=== PATIENT | female | born 1995 ===

== ENCOUNTER 2020-09-02 05:40 | Inpatient (IN) | payer MEDICAID ==
[2020-09-02] MEDS ORDERED: Sodium Chloride 0.9% 10 ML Syringe FLUSH PRN (07:02)
[2020-09-02] MEDS ORDERED: Methylergonovine 0.2 MG/1 ML Amp IM PRN (07:02)
[2020-09-02] MEDS ORDERED: Sodium Chloride 0.9% 10 ML SDV IV PRN (07:02)
[2020-09-02] MEDS ORDERED: Water For Irrigation,Sterile 1,000 ML Container IRR PRN (07:02)
[2020-09-02] MEDS ORDERED: Misoprostol 200 MCG Tab PO PRN (07:02)
[2020-09-02] MEDS ORDERED: Sodium Chloride 0.9% 2.5 ML Syringe FLUSH PRN (07:02)
[2020-09-02] MEDS ORDERED: Tranexamic Acid 1,000 MG in Sodium Chloride 0.9% 100 ML IV PRN (07:02)
[2020-09-02] MEDS ORDERED: Carboprost Tromethamine 250 MCG/1 ML Amp IM PRN (07:02)
[2020-09-02] MEDS ORDERED: Nalbuphine 10 MG/1 ML Vial IVPUSH PRN (07:02)
[2020-09-02] MEDS ORDERED: Lidocaine 1% 50 ML MDV INJECT PRN (07:02)
[2020-09-02] MEDS ORDERED: Oxytocin/0.9 % Sodium Chloride 30 UNIT/500 ML BAG IV SCH ×2 (07:15→10:15)
[2020-09-02] MEDS: Lactated Ringers 1,000 ML IV SCH ×2 (07:30→14:30)
[2020-09-02] MEDS ORDERED: Terbutaline 1 MG/ML SDV SUBCUT PRN (10:15)
[2020-09-02] MEDS ORDERED: Acetaminophen 500 MG Tab PO ONE (10:48)
[2020-09-02] MEDS: Butorphanol 1 MG/ML SDV IVPUSH PRN ×2 (14:27→16:02)
[2020-09-02] MEDS ORDERED: Morphine 10 MG/ML Syringe ONE (17:26)
[2020-09-02] MEDS ORDERED: Morphine 10 MG/ML Syringe IVPUSH ONE (17:37)
[2020-09-02] MEDS ORDERED: Acetaminophen 500 MG Tab PO PRN ×2 (18:20)
[2020-09-02] MEDS ORDERED: Ibuprofen 400 MG Tab PO PRN (18:20)
[2020-09-02] MEDS ORDERED: Bisacodyl 10 MG Supp RECTAL PRN (18:20)
[2020-09-02] MEDS ORDERED: Witch Hazel Medicated Pads 40/Jar TOP PRN (18:20)
[2020-09-02] MEDS ORDERED: Lanolin 100% Cream 7 GM Tube TOP PRN (18:20)
[2020-09-02] MEDS ORDERED: oxyCODONE 5 MG Tab PO PRN (18:20)
[2020-09-02] MEDS ORDERED: Benzocaine/Menthol 20%-0.5% Spray 78 GM Cannister TOP PRN (18:20)
[2020-09-02] MEDS: Docusate Sodium 100 MG Cap PO PRN (20:26)
[2020-09-02] MEDS: Ibuprofen 800 MG Tab PO PRN (20:27)
[2020-09-03] MEDS: Ibuprofen 800 MG Tab PO PRN ×3 (02:23→16:33)
--- NOTE | 2020-09-03 08:41 | OR ---
SURGEON: JOEY THORNE DATE OF PROCEDURE: 09/02/2020 PREOPERATIVE DIAGNOSIS: A 25-year-old G2, P0-0-1-0 at 38 weeks and 1 day, admitted with SROM. POSTOPERATIVE DIAGNOSIS: A 25-year-old G2, P0-0-1-0 at 38 weeks and 1 day, admitted with SROM. PROCEDURE: Normal spontaneous vaginal delivery and repair of second-degree laceration. FINDING: A live male delivered at 5:13 p.m. score of 8 and 9, weight is 3320g ESTIMATED BLOOD LOSS: 300. IV FLUIDS: Pitocin running. ANESTHESIA: 1% lidocaine local BRIEF HISTORY ABOUT THE PATIENT: She is a 25-year-old G2, P0-0-1-0 at 38 weeks and 1 day, who came in complaining of leakage of fluid. She was confirmed to be ruptured. She was about 3 cm when she came in and she was observed for a while. She did not make change, so Pitocin was started. When the Pitocin was started, she was noted to have recurrent contractions, so Pitocin was stopped and the patient made normal labor progress. She became fully dilated. DESCRIPTION OF PROCEDURE: With the patient being fully dilated, she was encouraged to push. With good pushing effort, she delivered the head in a compound presentation with the hand. The anterior and posterior shoulder was delivered. The body of the infant was delivered. was placed on maternal abdomen. Delayed cord clamping was observed. Cord blood gases were obtained and placenta was delivered via controlled cord traction. Then, the perineum was inspected and a second-degree laceration was noted, which was repaired in layer with 2-0 Monocryl. All instrument and pad counts were correct x2. The patient tolerated the procedure well and was left in Labor and Delivery room in stable condition. ZORAIDA DAUGHERTY /[id number] NAYELI
--- NOTE | 2020-09-03 08:49 | PCM.PNPP ---
- General Info Date of Service: 09/03/20 Functional Status: Reports: Pain Controlled, Tolerating Diet, Ambulating, Urinating - Review of Systems General: Reports: No Symptoms HEENT: Reports: No Symptoms Pulmonary: Reports: No Symptoms Cardiovascular: Reports: No Symptoms Gastrointestinal: Reports: No Symptoms Genitourinary: Reports: No Symptoms Musculoskeletal: Reports: No Symptoms Skin: Reports: No Symptoms Neurological: Reports: No Symptoms Psychiatric: Reports: No Symptoms - General Info Date of Service: 09/03/20 - Patient Data Vital Signs - Most Recent: Last Vital Signs Temp 36.6 C 09/03/20 08:00 Pulse 78 09/03/20 08:00 Resp 14 09/03/20 08:00 BP 110/62 09/03/20 08:00 Pulse Ox 96 09/03/20 08:00 Weight - Most Recent: 84.368 kg Lab Results - Last 24 Hours: Laboratory Results - last 24 hr 09/02/20 09/02/20 09/02/20 Range/Units 07:30 07:45 17:13 Hgb (12.0-16.0) g/dL Hct (36.0-46.0) % Cord ABG pH 7.274 (7.18-7.38) Cord ABG Base Excess -8 (-10--2) Cord VBG pH 7.332 (7.25-7.45) Cord VBG Base Excess -6 (-10--2) SARS-CoV-2 RNA (CELESTINO) NEGATIVE (NEGATIVE) Blood Type O POSITIVE Antibody Screen NEGATIVE 09/03/20 Range/Units 05:20 Hgb 10.5 L (12.0-16.0) g/dL Hct 32.6 L (36.0-46.0) % Cord ABG pH (7.18-7.38) Cord ABG Base Excess (-10--2) Cord VBG pH (7.25-7.45) Cord VBG Base Excess (-10--2) SARS-CoV-2 RNA (CELESTINO) (NEGATIVE) Blood Type Antibody Screen Med Orders - Current: Current Medications Acetaminophen (Tylenol Extra Strength) 500 mg PO Q4H PRN PRN Reason: Pain Acetaminophen (Tylenol Extra Strength) 1,000 mg PO Q4H PRN PRN Reason: Pain Benzocaine/Menthol (Dermoplast Pain Relief 20%-0.5% [place]) 78 gm TOP ASDIRECTED PRN PRN Reason: Perineal Comfort Measure Last Admin: 09/02/20 20:25 Dose: 1 can Documented by: Bisacodyl (Dulcolax) 10 mg RECTAL ONETIME PRN PRN Reason: Constipation Butorphanol Tartrate (Stadol) 1 mg IVPUSH Q1H PRN PRN Reason: Pain Last Admin: 09/02/20 16:02 Dose: 1 mg Documented by: Carboprost Tromethamine (Hemabate Ds) 250 mcg IM ASDIRECTED PRN PRN Reason: Post Hemorrhage Docusate Sodium (Colace) 100 mg PO BID PRN PRN Reason: Constipation Last Admin: 09/02/20 20:26 Dose: 100 mg Documented by: Emollient Ointment (Lansinoh Hpa) 0 gm TOP ASDIRECTED PRN PRN Reason: Sore Nipples Lactated Ringer's (Ringers, Lactated) 1,000 mls @ 150 mls/hr IV ASDIRECTED AVILA Last Admin: 09/02/20 14:30 Dose: 150 mls/hr Documented by: Oxytocin/Sodium Chloride (Oxytocin 30 Unit/500 Ml-Ns) 30 unit in 500 mls @ 500 mls/hr IV TITRATE AVILA Tranexamic Acid 1,000 mg/ (Sodium Chloride) 110 mls @ 660 mls/hr IV ONETIME PRN PRN Reason: Bleeding Oxytocin/Sodium Chloride (Oxytocin 30 Unit/500 Ml-Ns) 30 unit in 500 mls @ 2 mls/hr IV TITRATE AVILA; Protocol Last Titration: 09/02/20 14:15 Dose: 0 munits/min, 0 mls/hr Documented by: Ibuprofen (Motrin) 400 mg PO Q4H PRN PRN Reason: Pain Ibuprofen (Motrin) 800 mg PO Q6H PRN PRN Reason: Pain Last Admin: 09/03/20 02:23 Dose: 800 mg Documented by: Lidocaine HCl (Xylocaine 1%) 50 ml INJECT ONETIME PRN PRN Reason: Laceration repair Last Admin: 09/02/20 17:33 Dose: 50 ml Documented by: Methylergonovine Maleate (Methergine) 0.2 mg IM ASDIRECTED PRN PRN Reason: Post Hemorrhage Misoprostol (Cytotec) 200 mcg PO ONETIME PRN PRN Reason: Post Hemorrhage Nalbuphine HCl (Nubain) 10 mg IVPUSH Q1H PRN PRN Reason: Pain (severe 7-10) Oxycodone HCl (Oxycodone) 5 mg PO Q2H PRN PRN Reason: Pain Sodium Chloride (Saline Flush) 10 ml FLUSH ASDIRECTED PRN PRN Reason: Keep Vein Open Sodium Chloride (Saline Flush) 2.5 ml FLUSH ASDIRECTED PRN PRN Reason: Keep Vein Open Sodium Chloride (Normal Saline) 10 ml IV ASDIRECTED PRN PRN Reason: IV Use Sterile Water (Sterile Water For Irrigation) 1,000 ml IRR ASDIRECTED PRN PRN Reason: delivery Terbutaline Sulfate (Brethine) 0.25 mg SUBCUT ASDIRECTED PRN PRN Reason: Tacysystole Witch Alexa (Tucks) 1 pad TOP ASDIRECTED PRN PRN Reason: comfort care Discontinued Medications Acetaminophen (Tylenol Extra Strength) 1,000 mg PO ONETIME ONE Stop: 09/02/20 10:49 Last Admin: 09/02/20 11:11 Dose: 1,000 mg Documented by: Morphine Sulfate (Morphine) Confirm Administered Dose 10 mg .ROUTE .STK-MED ONE Stop: 09/02/20 17:27 Last Admin: 09/03/20 07:25 Dose: Not Given Documented by: Morphine Sulfate (Morphine) 6 mg IVPUSH ONETIME ONE Stop: 09/02/20 17:38 Last Admin: 09/03/20 07:25 Dose: Not Given Documented by: - Infant Interaction Support Person: Significant Other - Recovery Exam Fundal Tone: Firm Fundal Level: 1 Fingerbreadths Below Umbilicus Fundal Placement: Midline Lochia Amount: Scant Lochia Color: Rubra/Red Perineum Description: Other (see below) Other Perinuem Description: 2nd degree repaired laceration Episiotomy/Laceration: Approximated Bladder Status: Voiding - Exam General: Alert, Oriented HEENT: Pupils Equal Neck: Supple Lungs: Clear to Auscultation Cardiovascular: Regular Rate, Regular Rhythm GI/Abdominal Exam: Normal Bowel Sounds Extremities: Normal Inspection Skin: Warm Psy/Mental Status: Alert - Problem List & Annotations (1) Vaginal delivery SNOMED Code(s): 563662169 Code(s): O80 - ENCOUNTER FOR FULL-TERM UNCOMPLICATED DELIVERY Status: Acute Current Visit: Yes - Problem List Review Problem List Initiated/Reviewed/Updated: Yes - My Orders Last 24 Hours: My Active Orders 09/02/20 10:15 Oxygen Therapy [RC] ASDIRECTED Oxytocin/0.9 % Sodium Chloride [Oxytocin 30 Unit/500 ML-NS] 30 unit in 500 ml IV TITRATE Terbutaline [Brethine] 0.25 mg SUBCUT ASDIRECTED PRN 09/02/20 18:20 Acetaminophen [Tylenol Extra Strength] 1,000 mg PO Q4H PRN Acetaminophen [Tylenol Extra Strength] 500 mg PO Q4H PRN Benzocaine/Menthol [Dermoplast Pain Relief 20%-0.5% [place]] 78 gm TOP ASDIRECTED PRN Docusate Sodium [Colace] 100 mg PO BID PRN Ibuprofen [Motrin] 400 mg PO Q4H PRN Ibuprofen [Motrin] 800 mg PO Q6H PRN Lanolin [Lansinoh HPA] See Dose Instructions TOP ASDIRECTED PRN bisacodyL [Dulcolax] 10 mg RECTAL ONETIME PRN oxyCODONE 5 mg PO Q2H PRN witch Alexa [Tucks] 1 pad TOP ASDIRECTED PRN Resuscitation Status Routine 09/02/20 18:21 Patient Status [ADT] Routine May Shower [RC] ASDIRECTED Assess Lochia [WOMSER] Per Unit Routine Assess Uterine Involution [WOMSER] Per Unit Routine Peripheral IV Discontinue [OM.PC] Routine - Assessment Assessment:: 25 yo P1011 s/p , PPD 1 , ambulating , , normal lochia - Plan Plan:: Good response Discharge home today
[2020-09-03] MEDS: Docusate Sodium 100 MG Cap PO PRN (10:43)
== END 2020-09-03 20:25 | disposition home or self-care (01) | DRG 807 ==
LOC: MW.OBCHECK 05:40 → MW.OB 05:42 → MW.OBCHECK 06:45 → MW.OB 06:45 → OBSVTOIN 17:13 → MW.OB 20:33
PROVIDERS: ADMIT Obstetrics & Gynecology; ATTEND Obstetrics & Gynecology
PROC: 10E0XZZ Delivery of Products of Conception, External Approach (ICD-10-PCS; principal; 2020-09-02)
PROC: 0KQM0ZZ Repair Perineum Muscle, Open Approach (ICD-10-PCS; 2020-09-02)
DX: O42.92 Full-term premature rupture of membranes, unspecified as to length of time between rupture and onset of labor (principal); Z37.0 Single live birth; Z3A.38 38 weeks gestation of pregnancy; O70.1 Second degree perineal laceration during delivery
CPT/HCPCS: 36415; 59025; 59409; 82803; 84112; 85014; 85018; 85027; 86592; 86850; 86900; 86901; A9270-GY; J0595; J2001; J2590; J7120; U0002